=== PATIENT | male | born 1995 | race Caucasian/White ===

== ENCOUNTER 2017-10-28 15:04 | Emergency (ER) | payer MEDICAID ==
[2017-10-28 15:29] VITALS: BP 109/69; PULSE 90; RESP 18; TEMP 97.9; O2SAT 99
--- NOTE | 2017-10-28 15:54 | C.PDOC ---
History Of Present Illness 22 yr old male with PMHx of HIV, presents to the ER for evaluation of itchy rash for the past 2 weeks. Patient states he was seen by his PMD and was given prescriptions for Prednisone and Benadryl but had no improvement. Patient states the rash is generalized and pruritic. Denies history of previous allergy , antibiotic use, fever, chills, throat swelling, chest pain, SOB, nausea, vomiting, weakness or numbness. Time Seen by Provider: 10/28/17 15:26 Chief Complaint (Nursing): Abnormal Skin Integrity History Per: Patient History/Exam Limitations: no limitations Onset/Duration Of Symptoms: Days (2 weeks) Past Medical History Reviewed: Historical Data, Nursing Documentation, Vital Signs Vital Signs: Last Vital Signs Temp 97.9 F 10/28/17 15:26 Pulse 90 10/28/17 15:26 Resp 18 10/28/17 16:06 BP 109/69 10/28/17 15:26 Pulse Ox 99 10/28/17 15:55 - Medical History PMH: HIV (diagnosed at .) Family History: States: No Known Family Hx - Social History Hx Tobacco Use: Yes Hx Alcohol Use: No Hx Substance Use: No - Immunization History Hx Tetanus Toxoid Vaccination: Yes Hx Influenza Vaccination: Yes Hx Pneumococcal Vaccination: No Review Of Systems Except As Marked, All Systems Reviewed And Found Negative. Constitutional: Negative for: Fever, Chills ENT: Negative for: Throat Swelling Cardiovascular: Negative for: Chest Pain Respiratory: Negative for: Shortness of Breath Gastrointestinal: Negative for: Nausea, Vomiting Neurological: Negative for: Weakness, Numbness Physical Exam - Physical Exam Appears: Non-toxic, No Acute Distress Skin: Warm, Dry, Rash (Generalized macular rash) Head: Atraumatic, Normacephalic Eye(s): bilateral: Normal Inspection, PERRL, EOMI Oral Mucosa: Moist Tongue: Normal Appearing Lips: Normal Appearing Throat: Normal, No Erythema, No Exudate, No Drooling Neck: Normal, Normal ROM, Supple Cardiovascular: Rhythm Regular, No Murmur Respiratory: Normal Breath Sounds, No Rales, No Rhonchi, No Stridor, No Wheezing Extremity: Normal ROM, No Swelling Neurological/Psych: Oriented x3, Normal Speech, Normal Motor, Normal Sensation ED Course And Treatment O2 Sat by Pulse Oximetry: 99 (RA) Pulse Ox Interpretation: Normal Disposition Counseled Patient/Family Regarding: Diagnosis, Need For Followup, Rx Given - Disposition Referrals: [facility] [Outside] Disposition: HOME/ ROUTINE Disposition Time: 15:30 Condition: STABLE Additional Instructions: USE MEDICATION PRESCRIBED FOLLOW UP WITH DERMATOLOGY IN 2-3 DAYS FOR RE-EVALUATION NEED RETURN TO ED IF ANY WORSENING OR NEW CHANGES. Prescriptions: Permethrin 5% [Permethrin 5% Cream] 60 gm EXT ONCE #1 tube Instructions: Scabies (ED), Acute Rash (ED) Forms: [employer] (Slovenian) - Clinical Impression Clinical Impression: Rash, Scabies - PA / ELECTION WATCHER / Resident Statement MD/DO has reviewed & agrees with the documentation as recorded. - Scribe Statement The provider has reviewed the documentation as recorded by the Scribe Blossom Rios All medical record entries made by the Scribe were at my direction and personally dictated by me. I have reviewed the chart and agree that the record accurately reflects my personal performance of the history, physical exam, medical decision making, and the department course for this patient. I have also personally directed, reviewed, and agree with the discharge instructions and disposition.
== END 2017-10-28 16:07 | disposition home or self-care (01) ==
LOC: C.ER 15:04
DX: B86 Scabies (principal); R21 Rash and other nonspecific skin eruption; Z87.891 Personal history of nicotine dependence